=== PATIENT | female | born 1965 | race Caucasian/White ===

== ENCOUNTER 2016-11-08 08:26 | Day surgery (SDC) | payer OTHER ==
[~2016-11-08 08:26] MED LIST: LIDOCAINE W/ SODIUM BICARB 0.5 ML SYR ONE; Lactated Ringers 1,000 ML PRIMARY IV ONE
[2016-11-08] MEDS ORDERED: fentaNYL Inj 100 MCG/2 ML VIAL ONE (08:36)
--- NOTE | 2016-11-08 09:54 | GEN.OPNOTE ---
Colonoscopy Procedure Note Surgery Date: 11/08/16 Preoperative Diagnosis: Family history of cancer Postoperative Diagnosis: Family history of cancer Procedure: Colonoscopy Surgeon: Ramez Armstrong MD Anesthesia Provider: Devon Schwab CRNA Anesthesia Type: MAC Indications: Patient has been told that she has a family history of a genetic problem that requires a colonoscopy. Patient herself is unaware whether this is colon cancer. Patient has been adopted so she does not have much contact with biological parents. Findings: Prep : Excellent Cecum : Scope advanced all way to the cecum. Ileocecal valve identified and cannulated. Terminally ill and was within normal limits. Patient cecum had no abnormal pathology Ascending : Ascending colon was within normal limits no polyps tumors or cancers Transverse : Transverse colon was within normal limits no polyps tumors or cancers Sigmoid : Descending and sigmoid colon free from disease Rectum : No rectal pathology identified Digital Rectal Exam : A lubricated flexible colonoscope was inserted and passed to the blind end of the cecum. Additional Details: I would recommend patient get a colonoscopy every 5 years
[2016-11-08 10:13] VITALS: TEMP 98.8
[2016-11-08 10:19] VITALS: RESP 14
== END 2016-11-08 10:05 | disposition home or self-care (01) ==
LOC: SDSC 08:26
PROVIDERS: ATTEND Surgery
DX: Z80.9 Family history of malignant neoplasm, unspecified (principal)
CPT/HCPCS: 45378; 84703; J2704; J3010; J7120